=== PATIENT | female | born 1970 | race Caucasian/White ===

== ENCOUNTER 2019-10-21 15:27 | Emergency (ER) | payer BC ==
[2019-10-21 15:40] VITALS: RESP 16
[2019-10-21] MEDS ORDERED: DEXAMETHASONE SOD PHOSPHATE 10 MG/ML 1 ML VIAL IV STA (16:34)
[2019-10-21] MEDS ORDERED: SODIUM CHLORIDE 0.9% 1,000 ML IV STA (16:34)
[2019-10-21] MEDS ORDERED: KETOROLAC 30 MG/ML 1 ML VIAL IVP STA (16:34)
[2019-10-21] MEDS ORDERED: DIAZEPAM 5 MG/ML 2 ML INJ IVP STA (16:34)
[2019-10-21] MEDS ORDERED: HYDROmorphone 1 MG/ML 1 ML SYRINGE IVP STA (16:34)
--- NOTE | 2019-10-21 16:37 | ED ---
Back Pain HPI - General Chief Complaint: Back Pain/Injury Stated Complaint: Back pain Time Seen by Provider: 10/21/19 15:28 Source: patient, RN notes reviewed, old records reviewed Limitations: no limitations - History of Present Illness Initial Comments: This is a 49-year-old female DF for evaluation of back pain. Recent back pain during today while bending over. Patient has history of back pain chronic back pain and is morbidly obese. No specific trauma no loss of bowel or bladder patient secondary pain was unable to ablate presents by EMS. With the initial injury happened she was able to get to her bed and laid in bed for a few hours with heat and ice took Motrin nightly symptoms have helped. MD Complaint: back pain, back injury -: hour(s) Similar Symptoms Previously: Yes Place: home Radiation: none Severity: moderate Severity scale (1-10): 7 Consistency: constant Improves With: immobilization Worsens With: movement Context: while lifting, turning/twisting, bending Associated Symptoms: denies other symptoms - Related Data Home Medications Medication Instructions Recorded Confirmed Ibuprofen [Motrin Ib] 200 mg PO Q8H PRN 10/21/19 10/21/19 Allergies Allergy/AdvReac Type Severity Reaction Status Date / Time ciprofloxacin Allergy Unknown Verified 10/21/19 17:12 Review of Systems ROS Statement: Those systems with pertinent positive or pertinent negative responses have been documented in the HPI. ROS Other: All systems not noted in ROS Statement are negative. Past Medical History Past Medical History: No Reported History History of Any Multi-Drug Resistant Organisms: None Reported Past Surgical History: Section Past Psychological History: No Psychological Hx Reported Smoking Status: Never smoker Past Alcohol Use History: Occasional Past Drug Use History: None Reported General Exam Limitations: no limitations General appearance: alert, in no apparent distress Head exam: Present: atraumatic, normocephalic, normal inspection Eye exam: Present: normal appearance, PERRL, EOMI. Absent: scleral icterus, conjunctival injection, periorbital swelling ENT exam: Present: normal exam, mucous membranes moist Neck exam: Present: normal inspection. Absent: tenderness, meningismus, lymphadenopathy Respiratory exam: Present: normal lung sounds bilaterally. Absent: respiratory distress, wheezes, rales, rhonchi, stridor Cardiovascular Exam: Present: regular rate, normal rhythm, normal heart sounds. Absent: systolic murmur, diastolic murmur, rubs, gallop, clicks GI/Abdominal exam: Present: soft, normal bowel sounds. Absent: distended, tenderness, guarding, rebound, rigid Extremities exam: Present: normal inspection, full ROM, normal capillary refill. Absent: tenderness, pedal edema, joint swelling, calf tenderness Back exam: Present: normal inspection Neurological exam: Present: alert, oriented X3, CN II-XII intact Psychiatric exam: Present: normal affect, normal mood Skin exam: Present: warm, dry, intact, normal color. Absent: rash Course Vital Signs 10/21/19 15:37 Temperature 98.1 F Pulse Rate 83 Respiratory 16 Rate Blood Pressure 133/91 O2 Sat by Pulse 97 Oximetry - Reevaluation(s) Reevaluation #1: 10/21/19 17:24 Medical records reviewed Reevaluation #2: 10/21/19 17:24 Patient back pain is improved Medical Decision Making - Medical Decision Making 49 female DF for evaluation of acute on chronic back pain. Lumbar disc sprain and strain, patient given symptomatically therapy x-rays negative patient can be discharged home - Radiology Data Radiology results: report reviewed (X-ray LS spine negative for acute disease), image reviewed Disposition Clinical Impression: Mechanical back pain, Strain of lumbar region Disposition: HOME SELF-CARE Condition: Good Instructions (If sedation given, give patient instructions): Acute Low Back Pain (ED) Is patient prescribed a controlled substance at d/c from ED?: No Referrals: Belinda Chen DO [Primary Care Provider] - 1-2 days
[2019-10-21] MEDS ORDERED: LIDOCAINE 5% PATCH TOPICAL STA (16:39)
--- NOTE | 2019-10-21 17:08 | XR ---
EXAMINATION TYPE: XR lumbar spine 2 or 3V DATE OF EXAM: 10/21/2019 CLINICAL HISTORY: pain TECHNIQUE: Three views of the lumbar spine are submitted. COMPARISON: None. FINDINGS: There are 5 lumbar type vertebral bodies identified. The lumbar spine shows satisfactory alignment w ithout evidence of acute fracture or dislocation. Vertebral body heights are within normal limits. Moderate degenerative disc space narrowing. The overlying soft tissue appears unremarkable. IMPRESSION: No acute fracture or dislocation is seen in the lumbar spine. ICD 10 NO FRACTURE, INITIAL EVALUATION
[2019-10-21] MEDS ORDERED: IBUPROFEN 600 MG STARTER PACK 4 TAB BTL PO STA (17:23)
[2019-10-21] MEDS ORDERED: ACET/COD 300 MG/30 MG STARTER PACK 6 TAB BTL PO STA (17:23)
[2019-10-21] MEDS ORDERED: traMADol 50 MG STARTER PACK 3 TAB BTL PO STA (17:23)
[2019-10-21 17:45] VITALS: BP 148/74; PULSE 78; TEMP 98.2
[2019-10-22] MEDS ORDERED: LIDOCAINE 5% PATCH TOPICAL SCH (09:00)
== END 2019-10-21 17:41 | disposition home or self-care (01) ==
LOC: EC 15:27
DX: S39.012A Strain of muscle, fascia and tendon of lower back, initial encounter (principal); Z88.1 Allergy status to other antibiotic agents; X50.1XXA Overexertion from prolonged static or awkward postures, initial encounter
CPT/HCPCS: 72100; 99284; 96374; 96375 ×3; 96361; J1100; J3360; J1885; J1170

== ENCOUNTER 2021-09-26 05:34 | Observation (INO) | payer BC, OTHER ==
[2021-09-26] MEDS ORDERED: SODIUM CHLORIDE 0.9% 1,000 ML IV STA (06:01)
[2021-09-26] MEDS ORDERED: ONDANSETRON 4 MG/2 ML VIAL IVP STA (06:18)
[2021-09-26] MEDS ORDERED: HYDROmorphone 0.5 MG/0.5 ML SYRINGE IVP STA (06:18)
--- NOTE | 2021-09-26 06:20 | ED ---
Abdominal Pain HPI - General Chief Complaint: Abdominal Pain Stated Complaint: Abdominal pain Time Seen by Provider: 09/26/21 05:59 Source: patient, family, RN notes reviewed Mode of arrival: ambulatory Limitations: no limitations - History of Present Illness Initial Comments: 50-year-old female presents emergency Department chief complaint of abdominal pain. Patient states started around 7 or 8 PM last night. She started approximate one hour after eating. She has had some episodes that happened in the past but never been this intense and lasted this long. She's been rates to her back, shoulder region, she has mid to nausea and vomiting episodes. No diarrhea constipation no dysuria no hematuria no prior abdominal surgeries denies any chance . - Related Data Home Medications Medication Instructions Recorded Confirmed Ibuprofen [Motrin Ib] 200 mg PO Q8H PRN 10/21/19 10/21/19 Allergies Allergy/AdvReac Type Severity Reaction Status Date / Time ciprofloxacin Allergy Unknown Verified 09/26/21 05:42 Review of Systems ROS Statement: Those systems with pertinent positive or pertinent negative responses have been documented in the HPI. ROS Other: All systems not noted in ROS Statement are negative. Past Medical History Past Medical History: No Reported History History of Any Multi-Drug Resistant Organisms: None Reported Past Surgical History: Section Past Psychological History: No Psychological Hx Reported Smoking Status: Never smoker Past Alcohol Use History: Occasional Past Drug Use History: None Reported General Exam Limitations: no limitations General appearance: alert, in no apparent distress Head exam: Present: atraumatic, normocephalic, normal inspection Eye exam: Present: normal appearance, PERRL, EOMI. Absent: scleral icterus, conjunctival injection, periorbital swelling Respiratory exam: Present: normal lung sounds bilaterally. Absent: respiratory distress, wheezes, rales, rhonchi, stridor Cardiovascular Exam: Present: regular rate, normal rhythm, normal heart sounds. Absent: systolic murmur, diastolic murmur, rubs, gallop, clicks GI/Abdominal exam: Present: soft, tenderness (Epigastric, right upper quadrant), normal bowel sounds. Absent: distended, guarding, rebound, rigid Back exam: Absent: CVA tenderness (R), CVA tenderness (L) Neurological exam: Present: alert Skin exam: Present: warm, dry, intact, normal color. Absent: rash Course Vital Signs 09/26/21 05:38 Temperature 98.4 F Pulse Rate 70 Respiratory 22 Rate Blood Pressure 166/82 O2 Sat by Pulse 99 Oximetry Medical Decision Making - Medical Decision Making 50-year-old female presented for abdominal pain. Patient does have gallstones on ultrasound, no noted dilated biliary duct, no inflammatory changes of the gallbladder helping carry enzymes are elevated. I discussed the case with Dr. Napier recommend patient be kept nothing by mouth, fluid hydration, pain control patiently admitted for further observation and treatment we discussed possibility transfer if and under not improving for ERCP patient understands. - Lab Data Result diagrams: 09/26/21 06:26 09/26/21 06: Lab Results 09/26/21 09/26/21 09/26/21 Range/Units 06: 06: 06:26 WBC 5.2 (3.8-10.6) k/uL RBC 5.01 (3.80-5.40) m/uL Hgb 13.2 (11.4-16.0) gm/dL Hct 40.3 (34.0-46.0) % MCV 80.3 (80.0-100.0) fL MCH 26.4 (25.0-35.0) pg MCHC 32.8 (31.0-37.0) g/dL RDW 15.3 (11.5-15.5) % Plt Count 254 (150-450) k/uL MPV 7.9 Neutrophils % 76 % Lymphocytes % 16 % Monocytes % 4 % Eosinophils % 1 % Basophils % 0 % Neutrophils # 3.9 (1.3-7.7) k/uL Lymphocytes # 0.8 L (1.0-4.8) k/uL Monocytes # 0.2 (0-1.0) k/uL Eosinophils # 0.1 (0-0.7) k/uL Basophils # 0.0 (0-0.2) k/uL Sodium 138 (137-145) mmol/L Potassium 4.4 (3.5-5.1) mmol/L Chloride 103 (98-107) mmol/L Carbon Dioxide 24 (22-30) mmol/L Anion Gap 11 mmol/L BUN 14 (7-17) mg/dL Creatinine 0.73 (0.52-1.04) mg/dL Est GFR (CKD-EPI)AfAm >90 (>60 ml/min/1.73 sqM) Est GFR (CKD-EPI)NonAf >90 (>60 ml/min/1.73 sqM) Glucose 165 H (74-99) mg/dL Plasma Lactic Acid Pantera (0.7-2.0) mmol/L Calcium 9.5 (8.4-10.2) mg/dL Total Bilirubin 1.6 H (0.2-1.3) mg/dL AST 468 H (14-36) U/L ALT 256 H (4-34) U/L Alkaline Phosphatase 139 H (38-126) U/L Total Protein 8.8 H (6.3-8.2) g/dL Albumin 4.8 (3.5-5.0) g/dL Amylase 106 (30-110) U/L Lipase 1131 H (23-300) U/L Urine Color Yellow Urine Appearance Clear (Clear) Urine pH 7.5 (5.0-8.0) Ur Specific [place] 1.023 (1.001-1.035) Urine Protein Trace H (Negative) Urine Glucose (UA) Trace H (Negative) Urine Ketones Negative (Negative) Urine Blood Negative (Negative) Urine Nitrite Negative (Negative) Urine Bilirubin 1+ H (Negative) Urine Urobilinogen 3.0 (<2.0) mg/dL Ur Leukocyte Esterase Negative (Negative) 09/26/21 Range/Units 06:26 WBC (3.8-10.6) k/uL RBC (3.80-5.40) m/uL Hgb (11.4-16.0) gm/dL Hct (34.0-46.0) % MCV (80.0-100.0) fL MCH (25.0-35.0) pg MCHC (31.0-37.0) g/dL RDW (11.5-15.5) % Plt Count (150-450) k/uL MPV Neutrophils % % Lymphocytes % % Monocytes % % Eosinophils % % Basophils % % Neutrophils # (1.3-7.7) k/uL Lymphocytes # (1.0-4.8) k/uL Monocytes # (0-1.0) k/uL Eosinophils # (0-0.7) k/uL Basophils # (0-0.2) k/uL Sodium (137-145) mmol/L Potassium (3.5-5.1) mmol/L Chloride (98-107) mmol/L Carbon Dioxide (22-30) mmol/L Anion Gap mmol/L BUN (7-17) mg/dL Creatinine (0.52-1.04) mg/dL Est GFR (CKD-EPI)AfAm (>60 ml/min/1.73 sqM) Est GFR (CKD-EPI)NonAf (>60 ml/min/1.73 sqM) Glucose (74-99) mg/dL Plasma Lactic Acid [place] 1.5 (0.7-2.0) mmol/L Calcium (8.4-10.2) mg/dL Total Bilirubin (0.2-1.3) mg/dL AST (14-36) U/L ALT (4-34) U/L Alkaline Phosphatase (38-126) U/L Total Protein (6.3-8.2) g/dL Albumin (3.5-5.0) g/dL Amylase (30-110) U/L Lipase (23-300) U/L Urine Color Urine Appearance (Clear) Urine pH (5.0-8.0) Ur Specific [place] (1.001-1.035) Urine Protein (Negative) Urine Glucose (UA) (Negative) Urine Ketones (Negative) Urine Blood (Negative) Urine Nitrite (Negative) Urine Bilirubin (Negative) Urine Urobilinogen (<2.0) mg/dL Ur Leukocyte Esterase (Negative) Disposition Clinical Impression: Gall stone pancreatitis Disposition: ADMITTED IP TO THIS [facility] Condition: Fair Referrals: Belinda Chen DO [Primary Care Provider] - 1-2 days Time of Disposition: 08:01
[2021-09-26 06:45] LABS: Appearance,Urine Clear (Clear); Bilirubin,Urine 1+ (Negative); Blood,Urine Negative (Negative); Color,Urine Yellow; Glucose,Urine (UA) Trace (Negative); Ketones,Urine Negative (Negative); Leukocyte Esterase,Urine Negative (Negative); Nitrite,Urine Negative (Negative); PH, Urine 7.5 (5.0-8.0); Protein,Urine Trace (Negative); Specific Gravity,Urine 1.023 (1.001-1.035)
[2021-09-26 06:46] LABS: Basophils % (A) 0 %; Eosinophils # (A) 0.1 k/uL (0-0.7); Eosinophils % (A) 1 %; HCT 40.3 % (34.0-46.0); HGB 13.2 gm/dL (11.4-16.0); Lymphocytes # (A) 0.8 k/uL (1.0-4.8); Lymphocytes % (A) 16 %; MCH 26.4 pg (25.0-35.0); MCHC 32.8 g/dL (31.0-37.0); MCV 80.3 fL (80.0-100.0); Mean Platelet Volume 7.9; Monocytes # (A) 0.2 k/uL (0-1.0); Monocytes % (A) 4 %; Neutrophils # (A) 3.9 k/uL (1.3-7.7); Neutrophils % (A) 76 %; Platelet Count 254 k/uL (150-450); RBC 5.01 m/uL (3.80-5.40); RDW 15.3 % (11.5-15.5); WBC 5.2 k/uL (3.8-10.6)
[2021-09-26 06:59] LABS: ALT 256 U/L (4-34); AST 468 U/L (14-36); African American GFR (CKD) >90 (>60 ml/min/1.73 sqM); Albumin 4.8 g/dL (3.5-5.0); Alkaline Phosphatase 139 U/L (38-126); Amylase 106 U/L (30-110); Anion Gap 11 mmol/L; Blood Urea Nitrogen 14 mg/dL (7-17); Calcium 9.5 mg/dL (8.4-10.2); Carbon Dioxide 24 mmol/L (22-30); Chloride 103 mmol/L (98-107); Glucose 165 mg/dL (74-99); Non-African American GFR(CKD) >90 (>60 ml/min/1.73 sqM); Potassium 4.4 mmol/L (3.5-5.1); Sodium 138 mmol/L (137-145); Total Bilirubin 1.6 mg/dL (0.2-1.3); Total Protein 8.8 g/dL (6.3-8.2)
[2021-09-26 07:16] LABS: Lipase 1131 U/L (23-300)
--- NOTE | 2021-09-26 07:32 | US ---
EXAMINATION TYPE: US gallbladder DATE OF EXAM: 09/26/2021 COMPARISON: NONE CLINICAL HISTORY: pain. Pt states RUQ/Epigastric pain EXAM MEASUREMENTS: Liver Length: 25.0 cm Gallbladder Wall: 0.3 cm CBD: 0.5 cm Right Kidney: 11.2 x 5.1 x 5.5 cm Morbidly obese pt, difficult to penetrate Pancreas: wnl, tail obscured by overlying bowel gas Liver: Enlarged, difficult to penetrate Gallbladder: Probable gallstones at dependent portion Evidence for sonographic Espino's sign: No CBD: wnl Right Kidney: Visualized portions appeared wnl IMPRESSION: 1. Hepatomegaly correlate for hepatocellular disease, hepatic steatosis guidance. 2. Probable small gallstones.
[2021-09-26] MEDS ORDERED: ONDANSETRON 4 MG/2 ML VIAL IVP PRN (08:20)
[2021-09-26] MEDS ORDERED: HYDROmorphone 0.5 MG/0.5 ML SYRINGE IVP PRN (08:20)
[2021-09-26] MEDS ORDERED: NALOXONE 0.4 MG/ML 1 ML VIAL IV PRN (08:20)
[2021-09-26] MEDS ORDERED: SODIUM CHLORIDE 0.9% 1,000 ML IV SCH (08:30)
[2021-09-26] MEDS: PANTOPRAZOLE 40 MG/10 ML VIAL IV SCH (09:08)
[2021-09-26] MEDS: SODIUM CHLORIDE 0.9% 1,000 ML IV SCH ×2 (09:24→19:55)
--- NOTE | 2021-09-26 10:51 | P.GSHP ---
History of Present Illness H&P Date: 09/26/21 CHIEF COMPLAINT: Abdominal pain HISTORY OF PRESENT ILLNESS: This is a 50-year-old female presented to the emergency room with complaints of epigastric abdominal pain. She reports pain started around 7 or 8:00 last night. She reports that the pain is very severe and rates it 10 out of 10. Pain did radiate to her back. She did have nausea and vomiting. Last episode of emesis was 4 AM. Pain started 1 hour after eating dinner. She did eat chicken and kale salad with ranch dressing. Abdominal ultrasound shows probable small gallstones. She had elevated LFTs and lipase. Diagnosed with gallstone pancreatitis. She is currently nothing by mouth and on IV fluids. She's had similar pain but not as severe years ago. She contributed to a gallbladder attack. She reports that she will just go to sleep and symptoms resolved. Patient was never officially been diagnosed with gallstones. Surgical history does include . Denies any cardiac history. She currently denies any pain. Her last dose of IV pain medication was around 5:00 this morning. Patient does complain of feeling very thirsty and had not urinated yet this morning. Patient seen and examined with Dr. acosta PAST MEDICAL HISTORY: See list. PAST SURGICAL HISTORY: See list. MEDICATIONS: See list. ALLERGIES: See list. SOCIAL HISTORY: No illicit drug use. REVIEW OF SYSTEMS: CONSTITUTIONAL: Denies fever or chills. HEENT: Denies blurred vision, vision changes, or eye pain. Denies hemoptysis CARDIOVASCULAR: Denies chest pain or pressure. RESPIRATORY: No shortness of breath. GASTROINTESTINAL: See HPI for pertinent findings HEMATOLOGIC: Denies bleeding disorders. GENITOURINARY: Denies any blood in urine or increased urinary frequency. SKIN: Denies pruitis. Denies rash. PHYSICAL EXAM: VITAL SIGNS: Reviewed GENERAL: Well-developed in no acute distress. HEENT: No sclera icterus. Extraocular movements grossly intact. Moist buccal mucosa. Head is atraumatic, normocephalic. No nasal drainage. ABDOMEN: Soft. Nondistended. Nontender NEUROLOGIC: Alert and oriented. Cranial nerves II through XII grossly intact. LABORATORY DATA: WBC is 5.2 hemoglobin 13.2 platelets 254 Sodium 138 potassium 4.4 creatinine 0.73 Glucose 165 Lactic acid 1.5 Total bilirubin 1.6 AST 468 ALT 256 alk phos 139 Lipase 1131 Urinalysis negative for infection IMAGING: Gallbladder ultrasound hepatomegaly correlate for hepatocellular disease, hepatic steatosis guidance. Probable small gallstones ASSESSMENT: 1. Acute gallstone pancreatitis 2. Possible choledocholithiasis PLAN: -Start clear liquids -Continue to monitor -Increase IV fluids to normal saline at 125 mL per hour -Continue to monitor LFTs and lipase level -There is no GI service coverage this week if ERCP is needed -Continue supportive care -Continue pain medication as needed -Continue antibiotics -Consult medicine service for medical management -GI prophylaxis Protonix and DVT prophylaxis subcu heparin Physician Property Loss Insurance Claim Adjuster note has been reviewed by physician. Signing provider agrees with the documented findings, assessment, and plan of care. Past Medical History Past Medical History: No Reported History History of Any Multi-Drug Resistant Organisms: None Reported Past Surgical History: Section Additional Past Surgical History / Comment(s): mole removed on left upper thigh with stitches (stitches to be removed on 09/28/2021) Past Anesthesia/Blood Transfusion Reactions: No Reported Reaction Past Psychological History: No Psychological Hx Reported Smoking Status: Never smoker Past Alcohol Use History: Occasional Past Drug Use History: None Reported - Past Family History Father Family Medical History: Diabetes Mellitus Medications and Allergies Home Medications Medication Instructions Recorded Confirmed Type Calcium Carbonate [Tums] 1,000 mg PO TID PRN 09/26/21 09/26/21 History Allergies Allergy/AdvReac Type Severity Reaction Status Date / Time ciprofloxacin Allergy Unknown Verified 09/26/21 08:41 Surgical - Exam Vital Signs Temp Pulse Resp BP Pulse Ox 98.4 F 70 22 166/82 99 09/26/21 05:38 09/26/21 05:38 09/26/21 05:38 09/26/21 05:38 09/26/21 05:38 Results - Labs 09/26/21 06:26 09/26/21 06:26 Abnormal Lab Results - Last 24 Hours (Table) 09/26/21 09/26/21 09/26/21 Range/Units 06:26 06:26 06:26 Lymphocytes # 0.8 L (1.0-4.8) k/uL Glucose 165 H (74-99) mg/dL Total Bilirubin 1.6 H (0.2-1.3) mg/dL AST 468 H (14-36) U/L ALT 256 H (4-34) U/L Alkaline Phosphatase 139 H (38-126) U/L Total Protein 8.8 H (6.3-8.2) g/dL Lipase 1131 H (23-300) U/L Urine Protein Trace H (Negative) Urine Glucose (UA) Trace H (Negative) Urine Bilirubin 1+ H (Negative) Diabetes panel 09/26/21 Range/Units 06:26 Sodium 138 (137-145) mmol/L Potassium 4.4 (3.5-5.1) mmol/L Chloride 103 (98-107) mmol/L Carbon Dioxide 24 (22-30) mmol/L BUN 14 (7-17) mg/dL Creatinine 0.73 (0.52-1.04) mg/dL Glucose 165 H (74-99) mg/dL Calcium 9.5 (8.4-10.2) mg/dL AST 468 H (14-36) U/L ALT 256 H (4-34) U/L Alkaline Phosphatase 139 H (38-126) U/L Total Protein 8.8 H (6.3-8.2) g/dL Albumin 4.8 (3.5-5.0) g/dL Calcium panel 09/26/21 Range/Units 06:26 Calcium 9.5 (8.4-10.2) mg/dL Albumin 4.8 (3.5-5.0) g/dL Pituitary panel 09/26/21 Range/Units 06:26 Sodium 138 (137-145) mmol/L Potassium 4.4 (3.5-5.1) mmol/L Chloride 103 (98-107) mmol/L Carbon Dioxide 24 (22-30) mmol/L BUN 14 (7-17) mg/dL Creatinine 0.73 (0.52-1.04) mg/dL Glucose 165 H (74-99) mg/dL Calcium 9.5 (8.4-10.2) mg/dL Adrenal panel 09/26/21 Range/Units 06:26 Sodium 138 (137-145) mmol/L Potassium 4.4 (3.5-5.1) mmol/L Chloride 103 (98-107) mmol/L Carbon Dioxide 24 (22-30) mmol/L BUN 14 (7-17) mg/dL Creatinine 0.73 (0.52-1.04) mg/dL Glucose 165 H (74-99) mg/dL Calcium 9.5 (8.4-10.2) mg/dL Total Bilirubin 1.6 H (0.2-1.3) mg/dL AST 468 H (14-36) U/L ALT 256 H (4-34) U/L Alkaline Phosphatase 139 H (38-126) U/L Total Protein 8.8 H (6.3-8.2) g/dL Albumin 4.8 (3.5-5.0) g/dL
--- NOTE | 2021-09-26 15:46 | CONS ---
CONSULTATION DATE OF SERVICE: 09/26/2021. REASON FOR CONSULTATION: Advice regarding pancreatitis and other medical issues requested by surgery. HISTORY OF PRESENT ILLNESS: This 50-year-old woman with a past medical history of no significant illness except section was complaining of abdominal pain. The patient has history of some abdominal pain in the right upper quadrant and the patient had features of pancreatitis and an ultrasound gallbladder showed hepatomegaly with hepatic steatosis and gallstones also. There is no history of fever, rigors, no history of headache, loss of consciousness or seizures. PAST MEDICAL HISTORY: No significant cardiorespiratory illness. MEDICATIONS: Home medications are reviewed and include Tums. ALLERGIES: CIPRO. FAMILY HISTORY: Diabetes mellitus in the family. SOCIAL HISTORY: No history of smoking. Occasional alcohol. REVIEW OF SYSTEMS: Fourteen point review of system negative as mentioned earlier. PHYSICAL EXAM: Pulse 69, blood pressure 162/93. Respiration 14. HEENT: Conjunctivae normal. Neck: No JVD. Cardiovascular: S1, S2. Respiration: Breath sounds diminished in the bases. No rhonchi. No crackles. Abdomen: Soft, minimal diffuse tenderness in the right upper quadrant. No guarding, no rigidity. Legs: No edema. Nervous system: No focal deficits. LABS: CBC within normal limits. Other labs, total bilirubin is 1.6. AST 468, ALT is 256, amylase is 106, lipase 1113. ASSESSMENT: 1. Acute gallstone pancreatitis. 2. Acute cholelithiasis. 3. Elevated LFTs secondary to gallstones, possibly. 4. Hypertension. RECOMMENDATIONS AND DISCUSSION: This 50-year-old woman who presented with multiple medical issues, at this time, I recommend to continue the current medications, management and symptomatic treatment. Otherwise cut down the IV fluids. Symptomatic treatment. Proton pump inhibitors. DVT prophylaxis. Otherwise, closely follow and recommend close followup with primary physician in he outpatient setting. We will monitor blood pressure closely. MMODL / IJN: [id number] /
[2021-09-26] MEDS: HEPARIN SODIUM,PORCINE/PF 5,000 UNIT/0.5 ML SYRINGE SQ SCH (21:03)
[2021-09-27] MEDS: PANTOPRAZOLE 40 MG/10 ML VIAL IV SCH (08:54)
[2021-09-27] MEDS: HEPARIN SODIUM,PORCINE/PF 5,000 UNIT/0.5 ML SYRINGE SQ SCH (08:54)
[2021-09-27] MEDS: SODIUM CHLORIDE 0.9% 1,000 ML IV SCH (08:58)
[2021-09-27 09:10] LABS: Basophils # (A) 0.04 X 10*3/uL (0.00-0.10); Basophils % (A) 0.9 %; Eosinophils # (A) 0.23 X 10*3/uL (0.04-0.35); Eosinophils % (A) 5.3 %; HGB 12.6 g/dL (12.0-15.0); Immature Grans, Automated 1.1 %; Lymphocytes # (A) 1.62 X 10*3/uL (0.90-5.00); Lymphocytes % (A) 37.2 %; MCH 25.1 pg (27.0-32.0); MCHC 30.7 g/dL (32.0-37.0); MCV 81.7 fL (80.0-97.0); Mean Platelet Volume 11.1 fL (9.5-12.2); Monocytes # (A) 0.27 X 10*3/uL (0.20-1.00); Monocytes % (A) 6.2 %; NRBC Per 100 WBC 0 /100 WBCS (0.0-0.0); Neutrophils # (A) 2.14 X 10*3/uL (1.80-7.70); Neutrophils % (A) 49.3 %; Platelet Count 235 X 10*3/uL (140-440); RBC 5.02 X 10*6/uL (4.10-5.20); RDW 15.9 % (11.5-14.5); WBC 4.35 X 10*3/uL (4.50-10.00)
[2021-09-27 09:52] LABS: African American GFR (CKD) 87.6 (60.0-200.0); Albumin 4.2 g/dL (3.8-4.9); Albumin/Globulin Ratio 1.27 (1.60-3.17); Amylase 42 U/L (23-121); Anion Gap 10.8 mmol/L (10.00-18.00); BUN/Creat Ratio 8.11 Ratio (12.00-20.00); Blood Urea Nitrogen 7.3 mg/dL (9.0-27.0); Carbon Dioxide 24.2 mmol/L (20.0-27.5); Globulin 3.3 g/dL (1.6-3.3); Lipase 60 U/L (14-63); Non-African American GFR(CKD) 75.6 (60.0-200.0); Potassium 4.3 mmol/L (3.5-5.5); Total Bilirubin 0.8 mg/dL (0.30-1.20); Total Protein 7.5 g/dL (6.2-8.2)
--- NOTE | 2021-09-27 11:04 | P.DS ---
Providers Date of admission: 09/26/21 08:46 Expected date of discharge: 09/27/21 Attending physician: Poncho Acosta Consults: 09/26/21 10:43 Consult Physician Routine Consulting Provider: Edu Dan Consult Reason/Comments: medical management Do you want consulting provider notified?: Yes Primary care physician: Belinda Chen Hospital Course: Discharge diagnosis 1. Acute gallstone pancreatitis 2. Possible choledocholithiasis Hospital course This is a 50-year-old female presented to the emergency room with complaints of epigastric abdominal pain. She reports pain started around 7 or 8:00 last night. She reports that the pain is very severe and rates it 10 out of 10. Pain did radiate to her back. She did have nausea and vomiting. Last episode of emesis was 4 AM. Pain started 1 hour after eating dinner. She did eat chicken and kale salad with ranch dressing. Abdominal ultrasound shows probable small gallstones. She had elevated LFTs and lipase. Diagnosed with gallstone pancreatitis. Patient was made nothing by mouth. She was started on IV fluids. Her abdominal pain resolved. She was started on a clear liquid diet. Continues to have no abdominal pain. Her lipase has normalized. LFTs are trending downwards. Total bilirubin has normalized. Patient has probably passed a gallstone. She'll follow-up with Dr. acosta tomorrow in the office to discuss laparoscopic cholecystectomy. Patient is tolerating diet. Pain is resolved. Afebrile. She is stable for discharge. It is recommended that she continues on a low-fat diet. Please refer to chart for any further details. Physician Order Analyst note has been reviewed by physician. Signing provider agrees with the documented findings, assessment, and plan of care. Patient Condition at Discharge: Stable Plan - Discharge Summary New Discharge Prescriptions: Continue Calcium Carbonate [Tums] 1,000 mg PO TID PRN PRN Reason: Heartburn Discharge Medication List Calcium Carbonate [Tums] 1,000 mg PO TID PRN 09/26/21 [History] Follow up Appointment(s)/Referral(s): Belinda Chen DO [Primary Care Provider] - 1-2 days Poncho Acosta MD [STAFF PHYSICIAN] - 09/28/21 Activity/Diet/Wound Care/Special Instructions: Continue a low fat diet Discharge Disposition: HOME SELF-CARE
[2021-09-27] MEDS ORDERED: HYDROcodone/APAP 5-325MG 1 EACH TAB PO PRN (13:06)
[2021-09-27 13:50] VITALS: BP 170/85; PULSE 65; RESP 18; TEMP 97.6
--- NOTE | 2021-09-27 15:27 | PN ---
PROGRESS NOTE DATE OF SERVICE: 09/27/2021 This 50-year-old woman who was admitted with acute gallstone pancreatitis, improved significantly. Amylase, lipase normalized. No chest pain. No palpitations. No fever. PHYSICAL EXAMINATION: Pulse 68, blood pressure 120/77. Respiration 18. HEENT: Conjunctivae normal. Chest clear to auscultation. Cardiovascular: S1, S2. Abdomen: Soft, nontender. Nervous system: No focal deficits. LABS: Reviewed. AST/ALT improving. ASSESSMENT: 1. Acute gallstone pancreatitis. 2. Acute cholelithiasis. 3. Elevated LFTs secondary to gallstones, possibly improving. 4. Hypertension improved. COMMENTS: Recommend to continue current management, symptomatic treatment. Resume the home medications. Otherwise rest of the recommendations per surgery. Possible outpatient cholecystectomy. Repeat labs. Follow closely with Dr. Belinda Chen. Discussed with the patient. MMODL / IJN: [id number] /
== END 2021-09-27 14:55 | disposition home or self-care (01) ==
LOC: EC 05:34 → 6NMEDSUR 08:46
PROVIDERS: ADMIT Surgery; ATTEND Surgery
DX: K85.10 Biliary acute pancreatitis without necrosis or infection (principal); K80.20 Calculus of gallbladder without cholecystitis without obstruction; K76.0 Fatty (change of) liver, not elsewhere classified; I10 Essential (primary) hypertension; Z88.1 Allergy status to other antibiotic agents; Z98.891 History of uterine scar from previous surgery; Z98.890 Other specified postprocedural states; Z83.3 Family history of diabetes mellitus
CPT/HCPCS: 96376; 96361 ×3; 96372 ×2; 96374; 96375; 99285; 36415; 80053 ×2; 82150 ×2; 83605; 83690 ×2; 85025 ×2; 81003; 76705; G0378 ×2; J2405; C9113 ×2; J1170; J1644 ×2